=== PATIENT | male | born 1985 | race Caucasian/White ===

== ENCOUNTER → 2023-05-01 | Outpatient (REF) | payer OTHER ==
[2023-05-01 09:03] LABS: SEMEN APPEARANCE OPAQUE (OPAQUE)
[2023-05-01 09:04] LABS: SEMEN VISCOSITY LIQUID (LIQUID); SEMEN VOLUME 5.1 ml (2.0-5.0); SEMEN pH 8.5 (7.0-8.0); WBC CONCENTRATION >1 M/ml (<=1 M/ml)
[2023-05-01 09:05] LABS: SPERM CONCENTRATION 37.1 M/ml (>=15.0)
== END ==
LOC: M SFHCLERA 08:53
PROVIDERS: ATTEND Family Medicine
DX: Z31.41 Encounter for fertility testing (principal)

== ENCOUNTER → 2024-01-02 | Outpatient (REF) | payer OTHER ==
[2024-01-02 11:39] LABS: APPEARANCE, URINE CLEAR (CLEAR); BACTERIA, URINE AUTO NEGATIVE (NEGATIVE); BILIRUBIN, URINE AUTO NEGATIVE (NEGATIVE); BLOOD, URINE BLOOD NEGATIVE (NEGATIVE); COLOR, URINE YELLOW (YELLOW); GLUCOSE, URINE (UA) AUTO 1+ mg/dL (NEGATIVE); KETONE, URINE AUTO NEGATIVE (NEGATIVE); LEUKOCYTE ESTERASE, URINE AUTO NEGATIVE (NEGATIVE); MUCUS, URINE SMALL (NEGATIVE); NITRITE, URINE AUTO NEGATIVE (NEGATIVE); PROTEIN, URINE AUTO NEGATIVE (NEGATIVE); RBC, URINE AUTO 0 /HPF (0-3); SPECIFIC GRAVITY URINE AUTO 1.013 (1.002-1.035); SQUAMOUS EPITHELIAL CELL UR AU 0 /HPF (0-6); UROBILINOGEN, URINE AUTO 0.2 mg/dL (0.0-2.0); WBC, URINE AUTO 1 /HPF (0-3)
== END ==
LOC: M SMT 10:18
PROVIDERS: ATTEND Physician Assistant
DX: R30.0 Dysuria (principal)

== ENCOUNTER → 2025-05-10 | Outpatient (CLI) | payer OTHER ==
[2025-05-10 10:25] LABS: PLATELET COUNT, AUTOMATED 244 10^3/uL (150-450)
[2025-05-10 11:00] LABS: ESTIMATED AVERAGE GLUCOSE 154.0 MG/DL (60-110)
[2025-05-10 11:08] LABS: ALT/SGPT 23 U/L (7.0-40); AST/SGOT 15 U/L (<34); CALCIUM LEVEL 9.6 MG/DL (8.5-10.1); CARBON DIOXIDE LEVEL 32 MMOL/L (20-31); CHLORIDE LEVEL 106 MMOL/L (98-107); CHOLESTEROL LEVEL 146 MG/DL (<200); CHOLESTEROL RISK RATIO 2.55 (<5); CREATININE FOR GFR 0.82 MG/DL (0.70-1.30); GLOMERULAR FILTRATION RATE > 90.0 (>60); LDL CHOLESTEROL 79.7 MG/DL (<100); NON-HDL-C 88.9 MG/DL; POTASSIUM SERUM 4.5 MMOL/L (3.5-5.1); SODIUM LEVEL 144 MMOL/L (136-145); TRIGLYCERIDES LEVEL 46 MG/DL (<150)
== END ==
LOC: M LAB 09:24
DX: Z00.00 Encounter for general adult medical examination without abnormal findings (principal)

== ENCOUNTER → 2025-05-10 | Outpatient (CLI) | payer OTHER ==
[2025-05-10 10:58] LABS: CREATININE, URINE 166.6 MG/DL; MALB URINE SIEMENS 14.0 MG/L; MAU/CREAT RATIO 8.4 MCG/MG (0.0-30.0)
[2025-05-10 10:59] LABS: ALT/SGPT 22 U/L (7.0-40); AST/SGOT 17 U/L (<34); CALCIUM LEVEL 9.4 MG/DL (8.5-10.1); CARBON DIOXIDE LEVEL 31 MMOL/L (20-31); CHLORIDE LEVEL 105 MMOL/L (98-107); CHOLESTEROL LEVEL 143 MG/DL (<200); CHOLESTEROL RISK RATIO 2.50 (<5); CREATININE FOR GFR 0.82 MG/DL (0.70-1.30); GLOMERULAR FILTRATION RATE > 90.0 (>60); LDL CHOLESTEROL 76.0 MG/DL (<100); NON-HDL-C 85.8 MG/DL; POTASSIUM SERUM 4.4 MMOL/L (3.5-5.1); SODIUM LEVEL 142 MMOL/L (136-145); TRIGLYCERIDES LEVEL 49 MG/DL (<150)
[2025-05-10 11:00] LABS: ESTIMATED AVERAGE GLUCOSE 154.0 MG/DL (60-110)
== END ==
LOC: M LAB 09:28
PROVIDERS: ATTEND Nurse Practitioner Family
DX: E10.65 Type 1 diabetes mellitus with hyperglycemia (principal)